=== PATIENT | male | born 1965 | race American Indian/Alaskan Native ===

== ENCOUNTER 2024-04-04 08:20 | Day surgery (SDC) | payer OTHER, SELFPAY ==
[2024-04-04] VITALS (27 sets, daily range): BP systolic 99–149; BP diastolic 52–99; BMI 29.4
[2024-04-04] MEDS: NSS 244 ML IV (09:17)
[2024-04-04] MEDS: LOW STRENGTH ASPIRIN 81 MG PO (09:19)
[2024-04-04] MEDS: TYLENOL 650 MG PO (13:54)
--- NOTE | 2024-04-04 14:01 | ITS.CL.ANGIO ---
Addendum entered and electronically signed by Clinton Cosby DO 04/04/24 20:28:
Copy to: Milly Lozada M.D.
Original Note:
[facility] - Angioplasty
Angioplasty
Procedure Report:
CARDIAC CATHETERIZATION REPORT
Date of Procedure: 04/04/2024
Referring: Liliya Lao PA-C
INDICATION: Unstable angina, prior coronary artery bypass.
PROCEDURE:
1. Left heart catheterization.
2. Coronary angiography.
3. Bypass graft angiography.
4. Successful PCI of the distal left circumflex into OM 2.
5. Successful PCI of the proximal/mid circumflex, spanning the origin of OM1.
ACCESS:
6 [place] left radial artery.
CATHETERS:
1. 5 [place] GAVIN.
2. 5 [place] JL 4.
3. 5 [place] JR4.
4. 5 [place] multipurpose.
5. 5 [place] AL-1.
6. 6 [place] EBU 4.0 guiding catheter.
HEMODYNAMIC DATA
Weight (kg): 81.2
AO (s/d/x, mmHg): 121/77/97
LV (s/x mmHg): 123/12
LEFT VENTRICULOGRAPHY: Not performed.
CORONARY ANGIOGRAPHY
Dominance: Right.
Left Main: Large size, bifurcating vessel. There is no coronary artery disease.
LAD: Normal size vessel giving rise to a single diagonal. There is an 80% lesion in the mid vessel, immediately after the master septal. The diagonal is chronically totally occluded in its proximal margin.
Ramus: Congenitally absent.
Circumflex: Large sized, nondominant vessel giving rise to 2 obtuse marginals. There is an 80+% lesion in the proximal/mid vessel spanning the origin of OM1 that is initially underappreciated. There are tandem 90% lesions in the distal
circumflex leading into the second obtuse marginal as well as in the proximal OM 2. There is a 40-50% lesion in the ostium of OM1.
RCA: Small size, dominant vessel with an anterior takeoff. The vessel is chronically totally occluded in its proximal margin.
BYPASS GRAFT ANGIOGRAPHY
JAVED to LAD: Normal size graft with end-to-side anastomosis to the distal LAD. There is no evidence of stenosis or graft degeneration. Interestingly, injection of the graft does not clear immediately and there is significant competitive flow
demonstrated at the anastomosis site.
SVG to D1: Normal size graft with end-to-side anastomosis to the small diagonal. The medial branch of the diagonal is diffusely diseased. There is no evidence of stenosis or graft degeneration.
SVG to dRCA: Normal size graft with end-to-side anastomosis to the small RPDA. There are lucencies within the graft, 1 of which is consistent with a venous valve. There is a second lucency which is much more difficult to discern and could be a de
yeison stenosis. There is a 90% lesion in the distal RCA, immediately after the anastomosis of the vein graft. The RPDA is approximately 1.5 mm in diameter. It is unclear if this lesion is amenable to PCI.
SVG to OM 2: This graft cannot be located and is presumed chronically totally occluded at its origin.
INTERVENTION(S)
1. Successful PCI of the tandem, 90% lesions in the distal circumflex and OM 2 (overlapping Medtronic Noe [place] 2.0 x 26 TY, 2.5 x 15 TY, postdilated with a 2.5 NC balloon at the overlap and in the proximal stent) with reduction in stenosis
to 0%.
2. Treatment of slow reflow in the distal OM 2, restoring JUSTINA-3 flow.
3. Successful PCI of the underappreciated 80% proximal/mid circumflex lesion (Medtronic [place] 3.5 x 22 TY, postdilated with a 3.5 NC balloon) with reduction in stenosis to 0%, maintaining JUSTINA-3 flow.
Narrative:
The decision was made to proceed with percutaneous coronary intervention. The diagnostic catheter was removed over a wire and a 6Fr EBU 4.0 guiding catheter was advanced to the aortic root and seated in the left main coronary artery. Additional
heparin was given and a Power Turn Flex wire was advanced into the distal OM 2. The tandem 90% distal circumflex and OM 2 lesions were predilated with a 2.0 x 12 semi-compliant balloon to 12 ravin. The semi-compliant balloon was removed and a
Medtronic [place] 2.0 x 26 drug-eluting stent was advanced into the proximal OM 2. The stent was deployed at 12 atmospheres. The stent balloon was removed.
The patient began complaining of chest discomfort at this time. Coronary angiography revealed evidence of slow reflow. He was given a dose of intracoronary nitroglycerin with improvement of flow in OM 2.
We then turned our attention to the distal circumflex. A Medtronic Noe [place] 2.5 x 15 drug-eluting stent was advanced. The stent was placed in the distal artery, overlapping with the stent in OM 2. Meticulous care was taken to make sure that
the entire lesion was covered. The stent was deployed at 12 ravin. The stent balloon was removed. A 2.5 x 15 noncompliant balloon was advanced into the stents and the stent overlap was postdilated to 12 atmospheres. The noncompliant balloon was
pulled back to the proximal stent and the proximal stent was postdilated to 16 ravin. Angiography was performed in orthogonal views, confirming good stent expansion and an excellent angiographic result.
This angiography revealed that the lesion noted in the proximal/mid circumflex, that spanned to the origin of the first marginal, was much more severe than initially appreciated. Given the severity of this lesion, the decision was made to proceed
with PCI. Given the 50% lesion in OM1, there was concern for unfavorable plaque shift. Thus, a BMW wire was advanced into the circumflex wire and into OM1 for protection. The 2.0 x 12 semicompliant balloon was advanced over the power turn flex
wire. The 80% proximal/mid circumflex lesion was dilated to 12 ravin. The semicompliant balloon was removed. Angiography showed favorable plaque shift, with movement away from the origin of OM1. A Medtronic Noe [place] 3.5 x 22 drug-eluting
stent was advanced into the proximal/mid circumflex, spanning the origin of the first obtuse marginal. Meticulous care was taken to ensure that the entire lesion was covered. The stent was deployed to 12 ravin. The stent balloon was withdrawn and a
3.5 x 15 noncompliant balloon was advanced. The stent was postdilated to 15 ravin throughout.
Angiography was repeated showing good stent expansion and an excellent angiographic result. JUSTINA-3 flow was preserved in the first obtuse marginal. The power turn flex wire was withdrawn from the distal circumflex and redirected into the first
obtuse marginal, demonstrating that the artery was percutaneously accessible.
The coronary wire was withdrawn and the guide was disengaged from the artery. The catheter was removed over a standard J-wire.
Unfortunately, the patient continued to complain of significant chest discomfort in spite of JUSTINA-3 flow throughout all vessels. Review of the angiography did show that some small branch vessels in the distal circumflex were compromised during the
time of PCI. He was given IV morphine and transferred to the holding area. We will monitor overnight.
Closure Device: Vascular band.
Radiation (mGy): 1334.90
DAP (cm2.Gy): 89.6582
Fluoroscopy time (minutes): 20.2
Sedation time (minutes): 82
CONCLUSIONS
1. Right dominant circulation with chronic total occlusion of the proximal RCA, an 80% lesion in the mid LAD, a chronic total occlusion of the proximal diagonal, tandem 90% lesions in the distal circumflex and proximal OM 2, a 50% lesion in the
origin of OM1 and an underappreciated, 80% lesion in the proximal/mid circumflex, spanning the origin of OM1.
2. Status post prior coronary artery bypass grafting with patent JAVED to LAD, patent SVG to distal RCA with a possible 70% lesion in the vein graft and a 90% lesion in the distal RCA after the anastomosis, patent SVG to diagonal with a diffusely
diseased medial diagonal branch and an occluded SVG to OM2.
3. Status post successful PCI of the tandem, 90% distal circumflex and OM 2 lesions (overlapping Medtronic [place] 2.0 x 26 TY, 2.5 x 15 TY, postdilated with a 2.5 NC balloon at the overlap and in the proximal stent) with reduction in
stenosis to 0%), complicated by slow reflow.
4. Status post treatment of slow reflow with boluses of intracoronary nitroglycerin with adventism of JUSTINA-3 flow.
5. Successful PCI of the underappreciated 80% proximal/mid circumflex lesion (Medtronic [place] 3.5 x 22 TY, postdilated with a 3.5 NC balloon) with reduction in stenosis to 0%, maintaining JUSTINA-3 flow.
6. Normal filling pressures (LVEDP = 12 mmHg at 81.2 kg).
7. Compromise of distal LCx branches leading to chest pain/discomfort, possibly also related to pericardial stretch.
RECOMMENDATIONS:
1. Expectant management after cardiac catheterization via left radial approach.
2. Limited weight bearing on the left for one week.
3. Dual antiplatelet therapy with aspirin and clopidogrel for at least 12 months, followed by aspirin indefinitely.
4. Guideline directed medical therapy as hemodynamics will tolerate.
5. Treatment of residual chest pain with nitroglycerin and narcotics.
6. Aggressive risk factor modification.
7. If the patient continues to have exertional chest discomfort, we can consider PCI of the SVG to RPDA as well as the RPDA itself, though it is questionable as to whether or not this vessel is amenable to percutaneous intervention.
8. Referral to cardiac rehab.
9. Treat pericardial stretch pain an potential ischemia with IV narcotics, nitroglycerin.
Copy to: Liliya Lao PA-C
Clinton Cosby DO, FACC, FACP
[2024-04-04] MEDS: NITROGLYCERIN PREMIX 250 IV (14:25)
[2024-04-04] MEDS: MORPHINE SULFATE 2 MG IV (15:01)
[2024-04-04] MEDS: NSS 1000 IV (15:07)
[2024-04-04 15:17] LABS: ACT-LR - POC > 397 Seconds (116-155)
[2024-04-04] MEDS: ZOFRAN 4 MG IV ×2 (15:30→20:12)
--- NOTE | 2024-04-04 15:44 | PTCARENOTE ---
Received patient from the slab lifting engineer at 1430. Patient is AAO but very restless, complaining of chest pain, pain is in center of chest but unable to describe pain stating it was a 6-7/10. Complaining of left arm 'discomfort', said chest pain was not
radiating to the left arm but that the left arm was uncomfortable. Radial band in place left wrist which is dry and intact with a palpable radial pulse. Nitro gtt started in the recovery area at 20mcg/min, titrated to 30mcg/min and patient given
morphine 2mg IV as ordered. Placed on 2L NC, pulse ox 96%. Following morphine, patient became nauseated and had projectile vomiting of moderate amount of clear emesis. Jared Escobar NP notified and the patient was given zofran IV. Patient was able to fall
asleep, and appears more comfortable. SR/SB on the monitor. Son at the bedside, call betts within reach. Dr. Cosby in now speaking with the patient.
--- NOTE | 2024-04-04 16:07 | CM ---
CM following for DC planning needs.
Met w/ patient and son, Nicolas at bedside. Reviewed role of CM.
Pt. resides w/ spouse and son in a private home. Functionally, patient is indep. w/ ADLs, mobility without the use of any assisted device.
Pt. has Rx plan and uses [facility] on [address] [place].
Antic. DC to home once stable, no needs.
Will follow.
--- NOTE | 2024-04-04 16:22 | PTCARENOTE ---
EKG repeated, critical result Stemi, Tt to Dr. Cosby and Jared Escobar NP. Patient now states his chest pain is 5/10 and he does appear more comfortable and less restless. Still having left arm pain that he is unable to describe, states it is a
discomfort. Radial band intact, 3ml removed, no drainage noted, pulse palpable. Patient seen by Jared Escobar NP, planning on taking the patient back to the aquatic life laborer.
--- NOTE | 2024-04-04 17:20 | PTCARENOTE ---
Patient stood at the bedside and voided 800 ml clear yellow urine. Patient still has chest pain rated 5/10 and left arm discomfort. Remains NPO x ice chips and crackers given in the recovery area. at the bedside. Dr. Cosby in to see the
patient and plan is to take him back to the geophysical laboratory director and check stents. Radial band still in place left wrist, 6ml of air remaining.
--- NOTE | 2024-04-04 17:29 | W.PN.UPDATE ---
Update Note
Progress Note Update
The patient has been experiencing chest pain since the cardiac catheterization/PCI.
Serial EKGs have shown non-specific ST changes in the inferior leads, concerning for ST elevation (not meeting absolute criteria).
He feels mildly improved on nitro gtt and after some morphine.
I have reviewed the angiogram and PCI. The result is excellent. Some small dLCx branches were sacrificed as part of the PCI, which could explain some chest pain, but the degree and duration of pain seem out of proportion.
Given the EKG changes and the persistent chest pain, I feel that relook is reasonable and appropriate.
Consent is signed and on the chart.
--- NOTE | 2024-04-04 17:45 | PTCARENOTE ---
Patient taken back to the matlab developer, waiting in the room.
[2024-04-04 19:54] LABS: Glucose - Point of Care 143 mg/dl (70-99)
--- NOTE | 2024-04-04 19:59 | ITS.CL.ANGIO ---
Special Projects Manager - Angioplasty
Angioplasty
Procedure Report:
CARDIAC CATHETERIZATION REPORT
Date of Procedure: 04/04/2024
Referring: Clinton Cosby D.O.
INDICATION: Persistent chest discomfort, nonspecific inferior ST changes.
PROCEDURE:
1. Coronary angiography.
2. Limited bypass angiography.
3. Successful PTCA of the distal RCA.
4. Successful PCI of the SVG to distal RCA.
ACCESS:
6 [place] right radial artery.
CATHETERS:
1. 5 [place] JL 3.5.
2. 5 [place] multipurpose.
3. 6 [place] multipurpose guiding catheter.
HEMODYNAMIC DATA
Weight (kg): 81.2
AO (s/d/x, mmHg): 117/72/93
LV (s/x mmHg): Not obtained
LEFT VENTRICULOGRAPHY: Not performed.
CORONARY ANGIOGRAPHY
Dominance: Right.
Left Main: Large size, bifurcating vessel. There is no coronary artery disease.
LAD: Normal size vessel giving rise to a single diagonal. There is an 80% lesion in the mid vessel, immediately after the master septal. The diagonal is chronically totally occluded in its proximal margin.
Ramus: Congenitally absent.
Circumflex: Large sized, nondominant vessel giving rise to 2 obtuse marginals. There is an 80+% lesion in the proximal/mid vessel spanning the origin of OM1 that is initially underappreciated. There are tandem 90% lesions in the distal
circumflex leading into the second obtuse marginal as well as in the proximal OM 2. There is a 40-50% lesion in the ostium of OM1.
RCA: Not injected. Known to be a small size, dominant vessel with an anterior takeoff. The vessel is chronically totally occluded in its proximal margin.
BYPASS GRAFT ANGIOGRAPHY
JAVED to LAD: Not injected. Known to be a normal size graft with end-to-side anastomosis to the distal LAD. There is no evidence of stenosis or graft degeneration. Interestingly, injection of the graft does not clear immediately and there is
significant competitive flow demonstrated at the anastomosis site.
SVG to D1: Not injected. Known to be a normal size graft with end-to-side anastomosis to the small diagonal. The medial branch of the diagonal is diffusely diseased. There is no evidence of stenosis or graft degeneration.
SVG to dRCA: Normal size graft with end-to-side anastomosis to the small RPDA. There is a hazy, now 70-80% lesion in the mid SVG graft after a venous valve. There is a 90% dRCA lesion immediately after the anastomosis of the SVG.
SVG to OM 2: Not injected. Presumed to be chronically totally occluded at its origin.
INTERVENTION(S)
1. Successful PCI of the 70-80% lesion in the mid SVG to distal RCA graft (Medtronic Noe [place] 3.0 x 15 TY, postdilated with a 3.0 x 12 NC balloon) with reduction in stenosis to 0%, maintaining JUSTINA-3 flow.
2. Successful PTCA of the 90% distal RCA lesion (Medtronic [place] 2.25 x 12 semicompliant balloon) with reduction in stenosis to 30%, maintaining JUSTINA-3 flow.
3. Unsuccessful PCI of the distal RCA lesion (unable to pass a Medtronic [place] 2.0 x 12 TY).
Narrative:
The decision was made to proceed with percutaneous coronary intervention. The diagnostic catheter was removed over a wire and a 6Fr multipurpose guiding catheter was advanced to the aortic root and seated in the SVG to distal RCA. Additional heparin
was given and a Power Turn Flex wire was advanced into the distal RCA/RPDA. There was significant difficulty fully engaging the vein graft. A 6 [place] guide liner was advanced into the vein graft for additional support.
The 70-80% mid SVG lesion was predilated with a 2.0 x 12 semi-compliant balloon to 12 ravin.
The balloon was then advanced into the distal RCA and the 90% distal RCA lesion was dilated to 12 ravin.
The semi-compliant balloon was removed and a Medtronic [place] 2.0 x 12 drug-eluting stent was advanced. Unfortunately, the stent would not advance to a satisfactory location. The stent was withdrawn and a Medtronic [place] 2.25 x 12
semicompliant balloon was advanced. The distal RCA lesion was dilated to 12 ravin and the guide liner was advanced into the distal RCA. The balloon was deflated and the guide liner was advanced over the balloon and a sheath in technique but would
only cover half of the balloon. The stent was readvanced, but again would not advance into a satisfactory position.
After numerous attempts to advance the stent, the stent was pulled back and the guide liner was pulled into the mid vessel. Angiography showed a reduction in stenosis from 90% to 30%. JUSTINA-3 flow was maintained and the vessel itself appeared more
robust. There is no evidence of dissection. Given this reasonable result and the difficulties with advancing the stent, the decision was made to abandon further attempts at PCI.
We then turned our attention to the mid SVG lesion. The semicompliant balloon was withdrawn and a Medtronic [place] 3.0 x 15 TY was advanced. Meticulous care was taken while positioning the stent, ensuring that the entire lesion was
covered. The stent was deployed at 12 atmospheres. The stent balloon was removed. A 3.0 x 12 noncompliant balloon was advanced into the stent and the stent was postdilated to 15 atmospheres. Angiography was performed in orthogonal views, confirming
good stent expansion and an excellent angiographic result. The coronary wire was withdrawn and the guide was disengaged from the artery. The catheter was removed over a standard J-wire.
Closure Device: Vascular band.
Radiation (mGy): 1023.85
DAP (cm2.Gy): 59.6898
Fluoroscopy time (minutes): 13.9
Sedation time (minutes): 21
CONCLUSIONS
1. Right dominant circulation with chronically totally occluded RCA, and 80% lesion in the mid LAD and patent stents in the circumflex and second obtuse marginal status post prior coronary artery bypass grafting (patent JAVED to LAD, patent SVG to
D1, patent SVG to distal RCA, occluded SVG to OM 2) with a 70-80% lesion in the mid SVG graft to the distal RCA, status post successful PCI (Medtronic [place] 3.0 x 15 TY, postdilated with a 3.0 x 12 NC balloon) with reduction in stenosis to
0%, maintaining JUSTINA-3 flow and a successful PTCA of the 90% distal RCA lesion after the SVG anastomosis (Medtronic [place] 2.25 x 12 semicompliant balloon) with reduction in stenosis to 30%, maintaining JUSTINA-3 flow.
RECOMMENDATIONS:
1. Expectant management after cardiac catheterization via right radial approach.
2. Limited weight bearing on the right wrist for one week.
3. Maintain dual antiplatelet therapy for previously placed stents as well as this stent.
4. Aggressive risk factor modification.
5. Medical management of further chest pain.
Copy to: Liliya Lao PA-C, Milly Lozada M.D.
Clinton Cosby DO, FACC, FACP
[2024-04-04] MEDS: LIPITOR 80 MG PO (20:00)
[2024-04-04] MEDS: LEXAPRO 20 MG PO (20:00)
--- NOTE | 2024-04-04 20:47 | PTCARENOTE ---
Pt. received at change of shift from pathology laboratory aides teacher. Pt. arrived AOx3 with nitro drip and NS running. Complaining of 5/10 chest pain. VS WNL and EKG done. EKG reviewed by Dr. Cosby. Plan of care explained to patient and family. Right radial band in
place, c/d/i, air to be taken out starting at 2050. L radial covered with external pressure dressing, site: c/d/i. Continuing to monitor pt at this time.
--- NOTE | 2024-04-04 20:50 | PTCARENOTE ---
One episode of vomiting after attempting to eat dinner, fed by . IV zofran given at bedside. Pt. instructed to verbalize when nauseous. VS retaken, all WNL. Continuing to monitor the pt.
[2024-04-05] VITALS (15 sets, daily range): BP systolic 101–134; BP diastolic 49–82; BMI 29.3
[2024-04-05] MEDS: TYLENOL 650 MG PO ×4 (00:54→22:00)
[2024-04-05 04:01] LABS: Hematocrit 39.4 % (39.0-52.0); Hemoglobin 13.5 g/dL (13.0-18.0); Mean Corp Hgb Conc. 34.3 g/dL (33.0-37.0); Mean Corpuscular Hgb 27.6 pg (27.0-31.0); Mean Corpuscular Volume 80.6 fL (80.0-94.0); Mean Platelet Volume 9.5 fL (7.4-10.4); Platelet Count 139 10^3/uL (130-400); Red Blood Cell Count 4.89 10^6/uL (4.70-6.10); Red Cell Dist. Width 12.8 % (11.5-14.5); White Blood Cell Count 11.6 10^3/uL (4.8-10.8)
[2024-04-05 04:27] LABS: Blood Urea Nitrogen 12 mg/dl (9-20); Calcium 8.9 mg/dl (8.4-10.2); Carbon Dioxide 26 mmol/L (22-30); Chloride 103 mmol/L (98-107); Estimated Creatinine Clearance 119 ml/min; Glucose 139 mg/dl (70-99); HDL Cholesterol 28 mg/dl; LDL Cholesterol, Calculated 68 mg/dl; Sodium 135 mmol/L (135-145); Total Cholesterol 133 mg/dl (50-199); Triglyceride 187 mg/dl (10-149); Very Low Density Lipoprotein 37 mg/dl (0-30); eGFR > 60.00
--- NOTE | 2024-04-05 06:57 | W.PN.CD ---
Today's Communication / Plan
-
CK-MB.
Echocardiogram.
PPI.
Monitor for another day.
Impression / Plan
-
Impression/Plan: 58 y/o male with HLD and CAD s/p prior CABG admitted after elective cardiac catheterization for accelerating angina revealed an occluded SVG to OM2, severe disease in the LCx and OM2 as well as a 90% lesion in the small dRCA and a
70% lesion in the SVG to dRCA, prompting PCI of the LCx/OM2, complicated by chest pain and inferior EKG changes leading to relook and PCI of the SVG and PTCA of the dRCA.
#CAD/Accelerating angina
-Acute on chronic, progressive.
-S/P CABG at [facility], 2009 (patent JAVED to LAD, patent SVG to D1, patent SVG to dRCA with hazy 70% mid graft lesion, occluded SVG to OM2).
-S/P successful PCI to tandem 90% lesions in the dLCx/OM2 (overlapping Medtronic [place] 2.0 x 26, 2.5 x 18 TY) and underappreciated 80% mLCx (Medtronic [place] 3.5 x 22 TY).
-The patient began experiencing chest pain/shoulder pain during PCI. This was felt to be related to loss of small dLCx branches vs. pericardial stretch pain. HE was treated with nitro and narcotics. The patient continued to experience chest
discomfort, seemingly out of proportion to the procedure. EKG showed non-specific inferior ST changes, including borderline VANE in leads III/aVF.
-Relook cath showed widely patent stents. The SVG to dRCA lesion continued to look hazy, 70-80% with a 90% dRCA lesion. Given his persistent symptoms and EKG changes, the decision was made to treat this area. The SVG lesion is s/p PCI (Medtronic
[place] 3.0 x 15 TY) and the dRCA lesion is s/p PTCA (E[place]hora 2.25 SCB) with reduction in stenosis to 30% with inability to advance a stent beyond the lesion.
-CK-MB pending.
-EKG shows inferior infarct, age undetermined, with normalizing inferior ST segments.
-Dual antiplatelet therapy with aspirin and clopidogrel for at least 12 months.
-Echocardiogram pending.
-Aggressive risk factor modification.
#Hyperlipidemia
-Chronic, stable.
-Total cholesterol = 133, LDL = 68, HDL = 28, Triglycerides = 187.
-Continue high dose, high potency statin.
-He may benefit from icosapent ethyl as an outpatient.
#Chest pain
-Chronic, atypical at times.
-Discussed with outside cardiology service ([facility]). Ms. Lao reports that the patient often complains of constant chest pain, difficult to discern true angina vs. non-cardiac chest pain.
#Nausea
-New.
-Treated with ondansetron.
-Add PPI.
#PPX
-SCD's for DVT/VTE.
-Start PPI for possible GERD and N/V.
#Dispo
-IVU status.
-Full code.
Subjective/Interval History:
Cardiac catheterization for accelerating angina yesterday.
Cath showed that SVG to OM2 is closed with severe disease in the mLCx and dLCx/OM2; moderate+ disease in the SVG to dRCA and a 90% dRCA lesion after the anastamosis in a small artery.
Initially, the decision was made to treat the LCx/OM2.
During the procedure, he developed chest pain, felt to be related to the loss of small dLCx branches with PCI and pericardial stretch pain, treated with morphine and nitrates.
The pain persisted over the next few hours and seemed out of proportion. EKG showed non-specific inferior ST changes, including borderline VANE in leads III/aVF.
This prompted relook angiography, showing patent stents in the LCx/OM2. The SVG lesion appeared mildly progressed and the 90% dRCA lesion was unchanged.
Given the chest pain and EKG changes, the decision was made to treat this territory.
The SVG lesion was treated with a 3.5 x 15 TY.
The 90% lesion underwent to PTCA due to inability to pass a stent. Stenosis reduced to 30%. Chest pain was largely unchanged but EKG improved.
Overnight, the patient had an episode of nausea/vomiting treated with ondansetron.
This morning he reports that his chest pain has dissipated.
He does have some nausea again this morning.
DATA:
Cardiac Catheterization/PCI, 04/04/2024:
CONCLUSIONS
1. Right dominant circulation with chronic total occlusion of the proximal RCA, an 80% lesion in the mid LAD, a chronic total occlusion of the proximal diagonal, tandem 90% lesions in the distal circumflex and proximal OM 2, a 50% lesion in the
origin of OM1 and an underappreciated, 80% lesion in the proximal/mid circumflex, spanning the origin of OM1.
2. Status post prior coronary artery bypass grafting with patent JAVED to LAD, patent SVG to distal RCA with a possible 70% lesion in the vein graft and a 90% lesion in the distal RCA after the anastomosis, patent SVG to diagonal with a diffusely
diseased medial diagonal branch and an occluded SVG to OM2.
3. Status post successful PCI of the tandem, 90% distal circumflex and OM 2 lesions (overlapping Medtronic [place] 2.0 x 26 TY, 2.5 x 15 TY, postdilated with a 2.5 NC balloon at the overlap and in the proximal stent) with reduction in
stenosis to 0%), complicated by slow reflow.
4. Status post treatment of slow reflow with boluses of intracoronary nitroglycerin with quaker of JUSTINA-3 flow.
5. Successful PCI of the underappreciated 80% proximal/mid circumflex lesion (Medtronic [place] 3.5 x 22 TY, postdilated with a 3.5 NC balloon) with reduction in stenosis to 0%, maintaining JUSTINA-3 flow.
6. Normal filling pressures (LVEDP = 12 mmHg at 81.2 kg).
7. Compromise of distal LCx branches leading to chest pain/discomfort, possibly also related to pericardial stretch.
Relook catheterization/PCI, 04/04/2024:
CONCLUSIONS
1. Right dominant circulation with chronically totally occluded RCA, and 80% lesion in the mid LAD and patent stents in the circumflex and second obtuse marginal status post prior coronary artery bypass grafting (patent JAVED to LAD, patent SVG to
D1, patent SVG to distal RCA, occluded SVG to OM 2) with a 70-80% lesion in the mid SVG graft to the distal RCA, status post successful PCI (Medtronic [place] 3.0 x 15 TY, postdilated with a 3.0 x 12 NC balloon) with reduction in stenosis to
0%, maintaining JUSTINA-3 flow and a successful PTCA of the 90% distal RCA lesion after the SVG anastomosis (Medtronic [place] 2.25 x 12 semicompliant balloon) with reduction in stenosis to 30%, maintaining JUSTINA-3 flow.
Physical Exam
Vital Signs/Labs
Vital Signs
Temp Pulse Resp BP Pulse Ox
37.2 C 54 18 123/69 98
04/05/24 03:35 04/05/24 00:00 04/05/24 03:35 04/05/24 00:00 04/05/24 03:35
04/03/24 04/04/24 04/05/24
11:59 11:59 11:59
Actual Weight 81.2 kg 81 kg
04/05/24 03:49
04/05/24 03:50
Triglycerides 187 mg/dl (10-149) H 04/05/24 03:50
LDL Cholesterol, Calc 68 mg/dl 04/05/24 03:50
VLDL Cholesterol, Calc 37 mg/dl (0-30) H 04/05/24 03:50
HDL Cholesterol 28 mg/dl 04/05/24 03:50
Physical Exam
Constitutional: No acute distress and Comfortable
EENT: Anicteric and Moist mucous membranes
Cardiovascular: Rhythm & rate is regular, Pedal edema is absent, JVD pressure is normal, S1S2 is normal and Murmur/rub/gallop absent
Respiratory: Respiratory effort normal, Lungs clear to auscul., Wheeze Absent, Crackles Absent and Rhonchi Absent
GI: Soft, Distention absent, Flat, Non tender and Normal bowel sounds
Neuro/Psych: AO x 3
Other: Cath Site (Bilateral radial access sites are C/D/I.)
Data Reviewed
-
Date of Service: April 05, 2024
Medical Decision Making: Reviewed Test Results, Independent Historian Assessment, Test Interpretation and Review of Case with other Provider
EKG: Tracing Personally Visualized and interpreted and Report Reviewed by me
Echo: Ordered by me
Medical Tests (PFT, Pathology etc): Image Personally Visualized and interpreted and Report Reviewed by me
Labs: Labs Reviewed by me
Old Records: Reviewed
[2024-04-05 07:15] LABS: Glucose - Point of Care 125 mg/dl (70-99)
[2024-04-05 07:34] LABS: Creatine Phosphokinase 317 U/L (55-170)
[2024-04-05 07:45] LABS: CKMB 27.8 ng/ml (0.0-2.4)
[2024-04-05] MEDS: ZOFRAN 4 MG IV (07:50)
[2024-04-05 08:30] LABS: Glycohemoglobin (HgbA1c) 7.2 % (4.0-5.6)
[2024-04-05 08:35] LABS: ALT (SGPT) 35 U/L (0-50); AST (SGOT) 70 U/L (17-59); Albumin 3.8 g/dl (3.5-5.0); Alkaline Phosphatase 98 U/L (38-126); Direct Bilirubin 0.2 mg/dl (0.0-0.4); Total Bilirubin 0.7 mg/dl (0.2-1.3); Total Protein 6.4 g/dl (6.3-8.2)
[2024-04-05] MEDS: PROTONIX IV 40 MG IV (08:46)
[2024-04-05] MEDS: NSS (PRESERVATIVE FREE) 10 ML IV (08:46)
[2024-04-05] MEDS: PLAVIX 75 MG PO (08:46)
[2024-04-05] MEDS: LOW STRENGTH ASPIRIN 81 MG PO (08:47)
[2024-04-05] MEDS: TOPROL XL 25 MG PO (08:47)
--- NOTE | 2024-04-05 09:43 | PTCARENOTE ---
Received patient this morning resting in bed. Stated he felt 'dizzy', had a headache and felt hungry but was still nauseated. Chest discomfort was difficult for him to rate because he felt more of his discomfort was coming from his stomach, belching
frequently. Left arm discomfort has resolved. Nitro drip tapered to off. Medicated with tylenol with relief, given zofran for nausea and IV protonix. Tolerated an lao muffin. Patient asking for tylenol for his , stating she is 'sick' with a
fever and is coughing. Instructed that she needs to go home. Patient telephoned his son and he drove his mother home. 100% on RA, VSS. Patient appears to be resting comfortably now.
[2024-04-05 12:05] LABS: Glucose - Point of Care 160 mg/dl (70-99)
[2024-04-05 12:52] LABS: Total CK 366 U/L (55-170)
[2024-04-05 13:57] LABS: CKMB 27.1 ng/ml (0.0-2.4)
--- NOTE | 2024-04-05 14:21 | PTCARENOTE ---
Nausea resolved, ate a full lunch. Prior to echo being started at the bedside complained of some left shoulder/axilla 'discomfort'. When asked to rate the pain he stated it was not pain but a discomfort and could not rate it. SR on the monitor, VSS.
Echo completed, patient now sleeping. CK and Mb results tt to Jared Escobar NP.
[2024-04-05] MEDS: MAALOX 30 ML PO (16:59)
[2024-04-05] MEDS: LIPITOR 80 MG PO (17:00)
[2024-04-05] MEDS: LEXAPRO 20 MG PO (17:00)
--- NOTE | 2024-04-05 17:22 | PTCARENOTE ---
Patient tolerated lunch, complaining of burning in the chest and upper abdomen, if he had to rate discomfort he stated it was a 5/10. Asking for tylenol. EKG done, TIGIST. Jared Escobar NP on the floor and saw EKG, patient given maalox with tylenol. Appears
comfortable at this time.
--- NOTE | 2024-04-05 19:58 | PTCARENOTE ---
Pt. received at change of shift. Pt. seen and assessed in room. Pt. AOx3 sitting comfortably in chair. No complaints of dizziness or pain at this time. VS WNL. Tele reading NSR in the 60s. L and R radial sites c/d/i. Continuing to monitor pt at this
time.
[2024-04-05 21:13] LABS: Glucose - Point of Care 162 mg/dl (70-99)
[2024-04-06 01:39] VITALS: BMI 29.3
[2024-04-06 03:55] VITALS: BP 117/85
[2024-04-06 04:25] LABS: Hemoglobin 14.5 g/dL (13.0-18.0); Mean Corp Hgb Conc. 34.5 g/dL (33.0-37.0); Mean Corpuscular Hgb 27.9 pg (27.0-31.0); Mean Corpuscular Volume 80.8 fL (80.0-94.0); Mean Platelet Volume 10.1 fL (7.4-10.4); Platelet Count 147 10^3/uL (130-400); Red Cell Dist. Width 12.6 % (11.5-14.5); White Blood Cell Count 9.3 10^3/uL (4.8-10.8)
[2024-04-06 04:51] LABS: ALT (SGPT) 32 U/L (0-50); AST (SGOT) 74 U/L (17-59); Albumin 4.1 g/dl (3.5-5.0); Alkaline Phosphatase 91 U/L (38-126); Blood Urea Nitrogen 15 mg/dl (9-20); Calcium 8.9 mg/dl (8.4-10.2); Carbon Dioxide 25 mmol/L (22-30); Chloride 105 mmol/L (98-107); Estimated Creatinine Clearance 102 ml/min; Glucose 144 mg/dl (70-99); Sodium 137 mmol/L (135-145); Total Bilirubin 0.6 mg/dl (0.2-1.3); Total Protein 6.9 g/dl (6.3-8.2); eGFR > 60.00
[2024-04-06 07:30] VITALS: BP 109/75
[2024-04-06 07:34] LABS: Glucose - Point of Care 127 mg/dl (70-99)
[2024-04-06 07:57] LABS: ACT-LR - POC > 397 Seconds (116-155)
--- NOTE | 2024-04-06 08:14 | W.PN.CD ---
Today's Communication / Plan
-
Symptoms improved.
Add ezetimibe 10 mg daily.
Stable for outpatient follow up with Dr. Lozada and Ms. Lao ([facility] cardiology).
Impression / Plan
-
Impression/Plan: 58 y/o male with HLD and CAD s/p prior CABG admitted after elective cardiac catheterization for accelerating angina revealed an occluded SVG to OM2, severe disease in the LCx and OM2 as well as a 90% lesion in the small dRCA and a
70% lesion in the SVG to dRCA, prompting PCI of the LCx/OM2, complicated by chest pain and inferior EKG changes leading to relook and PCI of the SVG and PTCA of the dRCA. Post procedure enzymes consistent with small PPMI.
#CAD/Accelerating angina
-Acute on chronic, progressive.
-S/P CABG at [facility], 2009 (patent JAVED to LAD, patent SVG to D1, patent SVG to dRCA with hazy 70% mid graft lesion, occluded SVG to OM2).
-S/P successful PCI to tandem 90% lesions in the dLCx/OM2 (overlapping Medtronic [place] 2.0 x 26, 2.5 x 18 TY) and underappreciated 80% mLCx (Medtronic [place] 3.5 x 22 TY).
-The patient began experiencing chest pain/shoulder pain during PCI. This was felt to be related to loss of small dLCx branches vs. pericardial stretch pain. HE was treated with nitro and narcotics. The patient continued to experience chest
discomfort, seemingly out of proportion to the procedure. EKG showed non-specific inferior ST changes, including borderline VANE in leads III/aVF.
-Relook cath showed widely patent stents. The SVG to dRCA lesion continued to look hazy, 70-80% with a 90% dRCA lesion. Given his persistent symptoms and EKG changes, the decision was made to treat this area. The SVG lesion is s/p PCI (Medtronic
[place] 3.0 x 15 TY) and the dRCA lesion is s/p PTCA (Euphora 2.25 SCB) with reduction in stenosis to 30% with inability to advance a stent beyond the lesion.
-CK-MB peaked at 27.8, consistent with small PPMI.
-EKG shows inferior infarct, age undetermined, with normalizing inferior ST segments.
-Dual antiplatelet therapy with aspirin and clopidogrel for at least 12 months.
-Echocardiogram shows normal LV function, no regional wall motion abnormalities. LVEF = 55-60%.
-Aggressive risk factor modification. Add ezetimibe.
#Hyperlipidemia
-Chronic, stable.
-Total cholesterol = 133, LDL = 68, HDL = 28, Triglycerides = 187.
-Continue high dose, high potency statin.
-He may benefit from icosapent ethyl as an outpatient.
#Chest pain
-Chronic, atypical at times.
-Discussed with outside cardiology service ([facility]). Ms. Lao reports that the patient often complains of constant chest pain, difficult to discern true angina vs. non-cardiac chest pain.
-His current chest pain is non-cardiac given its continuous nature, unrelated to activity and normalization of enzymes.
#Nausea
-New, improved.
-Treated with ondansetron.
-PPI added yesterday.
#PPX
-SCD's for DVT/VTE.
-Start PPI for possible GERD and N/V.
#Dispo
-IVU status.
-Full code.
-Discharge.
Subjective/Interval History:
Significant improvement this morning.
Echo is normal.
CK-MB consistent with small PPMI.
Feels well. He has continuous, low level left sided chest pain.
DATA:
Cardiac Catheterization/PCI, 04/04/2024:
CONCLUSIONS
1. Right dominant circulation with chronic total occlusion of the proximal RCA, an 80% lesion in the mid LAD, a chronic total occlusion of the proximal diagonal, tandem 90% lesions in the distal circumflex and proximal OM 2, a 50% lesion in the
origin of OM1 and an underappreciated, 80% lesion in the proximal/mid circumflex, spanning the origin of OM1.
2. Status post prior coronary artery bypass grafting with patent JAVED to LAD, patent SVG to distal RCA with a possible 70% lesion in the vein graft and a 90% lesion in the distal RCA after the anastomosis, patent SVG to diagonal with a diffusely
diseased medial diagonal branch and an occluded SVG to OM2.
3. Status post successful PCI of the tandem, 90% distal circumflex and OM 2 lesions (overlapping Medtronic [place] 2.0 x 26 TY, 2.5 x 15 TY, postdilated with a 2.5 NC balloon at the overlap and in the proximal stent) with reduction in
stenosis to 0%), complicated by slow reflow.
4. Status post treatment of slow reflow with boluses of intracoronary nitroglycerin with confucianism of JUSTINA-3 flow.
5. Successful PCI of the underappreciated 80% proximal/mid circumflex lesion (Medtronic [place] 3.5 x 22 TY, postdilated with a 3.5 NC balloon) with reduction in stenosis to 0%, maintaining JUSTINA-3 flow.
6. Normal filling pressures (LVEDP = 12 mmHg at 81.2 kg).
7. Compromise of distal LCx branches leading to chest pain/discomfort, possibly also related to pericardial stretch.
Relook catheterization/PCI, 04/04/2024:
CONCLUSIONS
1. Right dominant circulation with chronically totally occluded RCA, and 80% lesion in the mid LAD and patent stents in the circumflex and second obtuse marginal status post prior coronary artery bypass grafting (patent JAVED to LAD, patent SVG to
D1, patent SVG to distal RCA, occluded SVG to OM 2) with a 70-80% lesion in the mid SVG graft to the distal RCA, status post successful PCI (Medtronic [place] 3.0 x 15 TY, postdilated with a 3.0 x 12 NC balloon) with reduction in stenosis to
0%, maintaining JUSTINA-3 flow and a successful PTCA of the 90% distal RCA lesion after the SVG anastomosis (Medtronic [place] 2.25 x 12 semicompliant balloon) with reduction in stenosis to 30%, maintaining JUSTINA-3 flow.
TTE, 04/05/2024:
CONCLUSIONS
Normal LV size and function with no regional wall motion abnormalities.
LVEF is 55 to 60% by visual estimation.
Mild concentric LVH. Normal diastolic function.
Normal right ventricular size and function.
No significant valvular disease.
Estimated pulmonary artery pressure of 26 mmHg assuming a right atrial pressure
of 3 mmHg.
No prior study available for comparison.
Physical Exam
Vital Signs/Labs
Vital Signs
Temp Pulse Resp BP Pulse Ox
37.1 C 71 16 117/85 98
04/06/24 07:28 04/06/24 04:00 04/06/24 07:28 04/06/24 03:55 04/06/24 07:28
04/04/24 04/05/24 04/06/24
11:59 11:59 11:59
Actual Weight 81.2 kg 81 kg 81 kg
04/06/24 04:01
04/06/24 04:01
Triglycerides 187 mg/dl (10-149) H 04/05/24 03:50
LDL Cholesterol, Calc 68 mg/dl 04/05/24 03:50
VLDL Cholesterol, Calc 37 mg/dl (0-30) H 04/05/24 03:50
HDL Cholesterol 28 mg/dl 04/05/24 03:50
Physical Exam
Constitutional: No acute distress and Comfortable
EENT: Anicteric and Moist mucous membranes
Cardiovascular: Rhythm & rate is regular, Pedal edema is absent, JVD pressure is normal, S1S2 is normal and Murmur/rub/gallop absent
Respiratory: Respiratory effort normal, Lungs clear to auscul., Wheeze Absent, Crackles Absent and Rhonchi Absent
GI: Soft, Distention absent, Flat, Non tender and Normal bowel sounds
Neuro/Psych: AO x 3
Other: Cath Site (Bilateral radial access sites are C/D/I.)
Data Reviewed
-
Date of Service: April 06, 2024
Medical Decision Making: Reviewed Test Results, Independent Historian Assessment and Test Interpretation
EKG: Tracing Personally Visualized and interpreted and Report Reviewed by me
Echo: Tracing Personally Visualized and interpreted and Report Reviewed by me
Medical Tests (PFT, Pathology etc): Image Personally Visualized and interpreted and Report Reviewed by me
Labs: Labs Reviewed by me
Old Records: Reviewed
[2024-04-06] MEDS: TOPROL XL 25 MG PO (08:29)
[2024-04-06] MEDS: PLAVIX 75 MG PO (08:29)
[2024-04-06] MEDS: LOW STRENGTH ASPIRIN 81 MG PO (08:30)
--- NOTE | 2024-04-06 09:24 | W.DS.TRANS ---
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
-
Discharge Instructions:
Discharge Diagnosis/Procedures Angioplasty with stent to left circumflex artery
x3, Angioplasty stent to vein graft to RCA x1
and balloon angioplasty to distal RCA
Diet Low Cholesterol
Driving Restrictions No driving for 24 hours
Other Services Cardiac Rehab
Instructions:
Stand-Alone Forms: DC Instructions- Cath/EP Lab
Return to Work
Changes to Home Medications: Yes
Discharge Medications:
DC Medications w/original date entered in [employer] [facility]
B12 5,000 mcg-methylfolate 1,360 mcg DFE-B6 2.5 mg chewable tablet 1 tab PO DAILY 04/04/24
aspirin 81 mg tablet,delayed release 81 mg PO DAILY 04/04/24
atorvastatin 80 mg tablet 80 mg PO QPM 04/04/24
cetirizine 10 mg tablet (Aller-Alan) 10 mg PO DAILY 04/04/24
cholecalciferol (vitamin D3) 125 mcg (5,000 unit) tablet (Vitamin D3) 125 mcg PO DAILY 04/04/24
escitalopram oxalate 20 mg tablet 20 mg PO DAILY 04/04/24
gabapentin 100 mg capsule 100 mg PO DAILY PRN pain 04/04/24
magnesium oxide 400 mg PO DAILY 04/04/24
metoprolol succinate 25 mg tablet,extended release 24 hr 25 mg PO DAILY 04/04/24
skknawvxukgr-vbmufgsj-lgltzt tablet (Multivitamin 50 Plus tablet) 1 tab PO DAILY 04/04/24
nitroglycerin 0.4 mg sublingual tablet 0.4 mg sublingual Q5-15M PRN chest pain 04/04/24
clopidogrel 75 mg tablet 75 mg PO DAILY #90 tabs 04/06/24
ezetimibe 10 mg tablet (Zetia) 10 mg PO DAILY #90 tabs 04/06/24
Home Medication Changes
new to plavix, and ezetimibe
Pending Results: No
--- NOTE | 2024-04-06 09:31 | PTCARENOTE ---
pt is sr on the monitor, hr in the 60s, vss. pt has been ambulating in the room and tolerating well. pt educated on plan of care and pt verbalized understanding. call betts within reach.
[2024-04-06] MEDS: TYLENOL 650 MG PO (09:52)
--- NOTE | 2024-04-06 11:02 | PTCARENOTE ---
d/c instructions read to pt and pt verbalized understanding. pt left with belongings from room, educational material and d/c instructions. pt left via wheelchair with staff member.
== END 2024-04-06 11:05 | disposition home or self-care (01) ==
LOC: CATH 08:20
PROVIDERS: Nurse Practitioner Adult Health; ATTENDING PHYSICIAN Internal Medicine Cardiovascular Disease; FAMILY PHYSICIAN Internal Medicine
DX: I25.110 Atherosclerotic heart disease of native coronary artery with unstable angina pectoris (principal); I25.810 Atherosclerosis of coronary artery bypass graft(s) without angina pectoris; Z95.5 Presence of coronary angioplasty implant and graft; Z79.02 Long term (current) use of antithrombotics/antiplatelets; Z79.82 Long term (current) use of aspirin; E78.5 Hyperlipidemia, unspecified; Z79.899 Other long term (current) drug therapy; K21.9 Gastro-esophageal reflux disease without esophagitis; Z95.1 Presence of aortocoronary bypass graft
CPT/HCPCS: 80053; 80061; 82248; 82550; 82553; 82962; 83036; 85027; 85347; 93005; 93306; 93455; 93459; C1725; C1874; C1887; C1894; C9600; C9604; Q9967